=== PATIENT | male | born 1955 | race Two or more races ===

== ENCOUNTER 2017-04-10 12:36 | Outpatient (CLI) | payer OTHER | END 2017-04-10 12:48 | disposition home or self-care (01) | LOC: SONOGRAMA 12:36 | DX: M54.9 Dorsalgia, unspecified (principal); R10.9 Unspecified abdominal pain ==

== ENCOUNTER → 2017-04-10 | Outpatient (CLI) | payer OTHER ==
[~2017-04-10] MED LIST: CIPRO500 MG PO; FINASTERIDE5 MG; LEVAQUIN500 MG; TAMS0.4C; URIN D.S. TABLE1 TAB PO
== END | disposition home or self-care (01) ==
LOC: LAB 12:05
DX: M54.9 Dorsalgia, unspecified (principal); R10.9 Unspecified abdominal pain

== ENCOUNTER 2017-05-09 09:38 | Outpatient (CLI) | payer OTHER | END 2017-05-09 09:49 | disposition home or self-care (01) | LOC: LAB 09:38 | DX: T78.40XA Allergy, unspecified, initial encounter (principal); R30.0 Dysuria ==

== ENCOUNTER 2018-02-26 06:54 | Emergency (ER) | payer OTHER ==
[~2018-02-26] VITALS: Ht 180.3 cm; Wt 90.7 kg
== END 2018-02-26 13:04 | disposition home or self-care (01) ==
LOC: ER 06:54
DX: N40.1 Benign prostatic hyperplasia with lower urinary tract symptoms (principal); R31.0 Gross hematuria

== ENCOUNTER 2018-04-02 09:10 | Outpatient (CLI) | payer OTHER | END 2018-04-02 12:00 | disposition home or self-care (01) | LOC: NUCLEAR 09:10 | DX: E78.5 Hyperlipidemia, unspecified (principal); M25.50 Pain in unspecified joint | CPT/HCPCS: 78306; A9503 ==

== ENCOUNTER 2018-07-22 18:57 | Emergency (ER) | payer OTHER ==
[~2018-07-22] VITALS: Ht 180.3 cm; Wt 91.6 kg
== END 2018-07-23 00:20 | disposition home or self-care (01) ==
LOC: ER 18:57
DX: R31.0 Gross hematuria (principal)

== ENCOUNTER 2018-12-19 06:22 | Outpatient (CLI) | payer OTHER | END 2018-12-19 06:34 | disposition home or self-care (01) | LOC: LAB 06:22 | DX: E80.7 Disorder of bilirubin metabolism, unspecified (principal) ==

== ENCOUNTER → 2019-07-21 06:50 | Outpatient (CLI) | payer OTHER | END | disposition home or self-care (01) | LOC: LAB 06:50 | PROVIDERS: ATTEND Internal Medicine | DX: E78.00 Pure hypercholesterolemia, unspecified (principal) ==

== ENCOUNTER 2019-07-22 06:42 | Outpatient (CLI) | payer OTHER | END 2019-07-22 06:57 | disposition home or self-care (01) | LOC: LAB 06:42 | PROVIDERS: ATTEND Specialist | DX: Z13.0 Encounter for screening for diseases of the blood and blood-forming organs and certain disorders involving the immune mechanism (principal) ==

== ENCOUNTER 2020-04-22 06:20 | Outpatient (CLI) | payer OTHER | END 2020-04-22 15:22 | disposition home or self-care (01) | LOC: LAB 06:20 | DX: E78.00 Pure hypercholesterolemia, unspecified (principal) ==

== ENCOUNTER 2020-04-22 07:23 | Outpatient (CLI) | payer OTHER | END 2020-04-22 07:41 | disposition home or self-care (01) | LOC: RAD 07:23 | DX: G31.84 Mild cognitive impairment of uncertain or unknown etiology (principal); G40.209 Localization-related (focal) (partial) symptomatic epilepsy and epileptic syndromes with complex partial seizures, not intractable, without status epilepticus ==

== ENCOUNTER → 2020-07-16 07:01 | Outpatient (CLI) | payer OTHER | END | disposition home or self-care (01) | LOC: LAB 07:01 | PROVIDERS: ATTEND Specialist | DX: M54.5 Low back pain (principal); R30.0 Dysuria ==

== ENCOUNTER 2020-07-16 07:39 | Outpatient (CLI) | payer OTHER | END 2020-07-16 08:06 | disposition home or self-care (01) | LOC: SONOGRAMA 07:39 | PROVIDERS: ATTEND Specialist | DX: M54.5 Low back pain (principal); R30.0 Dysuria ==

== ENCOUNTER 2021-01-12 09:32 | Outpatient (CLI) | payer OTHER | END 2021-01-12 09:37 | disposition home or self-care (01) | LOC: RAD 09:32 | PROVIDERS: ATTEND General Practice | DX: M51.37 Other intervertebral disc degeneration, lumbosacral region (principal); M54.41 Lumbago with sciatica, right side ==

== ENCOUNTER 2021-01-26 07:06 | Outpatient (CLI) | payer OTHER | END 2021-01-26 07:13 | disposition home or self-care (01) | LOC: SONOGRAMA 07:06 | PROVIDERS: ATTEND General Practice | DX: Q61.01 Congenital single renal cyst (principal); N28.89 Other specified disorders of kidney and ureter; R10.84 Generalized abdominal pain ==

== ENCOUNTER 2021-01-28 11:08 | Outpatient (CLI) | payer OTHER | END 2021-01-28 12:05 | disposition home or self-care (01) | LOC: RAD 11:08 | PROVIDERS: ATTEND General Practice | DX: I10 Essential (primary) hypertension (principal); N32.0 Bladder-neck obstruction; R97.20 Elevated prostate specific antigen [PSA]; N28.1 Cyst of kidney, acquired; Z12.5 Encounter for screening for malignant neoplasm of prostate; Z12.11 Encounter for screening for malignant neoplasm of colon; E78.2 Mixed hyperlipidemia; Z13.1 Encounter for screening for diabetes mellitus; Z13.220 Encounter for screening for lipoid disorders; Z13.228 Encounter for screening for other metabolic disorders; Z13.29 Encounter for screening for other suspected endocrine disorder ==

== ENCOUNTER 2021-03-25 10:55 | Outpatient (CLI) | payer OTHER | END 2021-03-25 11:10 | disposition home or self-care (01) | LOC: RAD 10:55 | PROVIDERS: ATTEND General Practice | DX: M25.562 Pain in left knee (principal) ==

== ENCOUNTER 2022-12-14 07:41 | Outpatient (CLI) | payer OTHER | END 2022-12-14 07:46 | disposition home or self-care (01) | LOC: RAD 07:41 | DX: R05.3 Chronic cough (principal) ==

== ENCOUNTER 2022-12-20 07:45 | Outpatient (CLI) | payer OTHER | END 2022-12-20 07:47 | disposition home or self-care (01) | LOC: SONOGRAMA 07:45 | DX: K76.0 Fatty (change of) liver, not elsewhere classified (principal) ==

== ENCOUNTER 2023-01-02 09:21 | Outpatient (CLI) | payer OTHER | END 2023-01-02 09:28 | disposition home or self-care (01) | LOC: RAD 09:21 | DX: M54.2 Cervicalgia (principal); M54.6 Pain in thoracic spine; M54.50 Low back pain, unspecified ==

== ENCOUNTER 2023-01-24 10:35 | Outpatient (CLI) | payer OTHER | END 2023-01-24 10:40 | disposition home or self-care (01) | LOC: RAD 10:35 | DX: M54.31 Sciatica, right side (principal); M51.36 Other intervertebral disc degeneration, lumbar region ==

== ENCOUNTER 2023-12-05 11:53 | Emergency (ER) | payer OTHER ==
[~2023-12-05] VITALS: Ht 180.3 cm; Wt 95.3 kg
[2023-12-05] MEDS ORDERED: COZAAR25 MG PO (12:33)
[2023-12-05] MEDS ORDERED: KETOROLAC TROMETHAMINE 60 MG VIAL IM STA (13:15)
[2023-12-05 13:58] LABS: HEMATOCRIT 45.6 % (39.0-48.0); HEMOGLOBIN 15.5 g/dL (13-16.00); MEAN CELL VOLUME 85.7 fL (80.0-100.00); MEAN CORPUSCULAR HEMOGLOBIN 29.1 pg (27.00-32.0); PLATELET COUNT 150 K/uL (150-450); RED BLOOD COUNT 5.32 M/uL (4.00-6.00); RED CELL DISTRIBUTION WIDTH 14.6 % (11.5-14.5)
[2023-12-05 14:47] LABS: CALCIUM 8.9 mg/dL (8.5-10.1); CREATININE SERUM 1.11 mg/dL (0.70-1.30); GFR 65.49; POTASSIUM 4.75 mEq/L (3.5-5.1)
[2023-12-05 15:06] LABS: PH,URINE 6.5 (5.0-8.0); URINE APPEARANCE Clear; URINE BILIRRUBIN Negative (NEGATIVE); URINE BLOOD Small; URINE COLOR Yellow; URINE GLUCOSE Negative (NEGATIVE); URINE KETONE Trace (NEGATIVE); URINE LEUKOCYTE Negative; URINE NITRATE Negative
[2023-12-05 15:10] LABS: URINE BACTERIA 11.3 uL (0.0-1933); URINE EPITHELIAL CELLS 2.3 uL (0.0-38.8); URINE RBC 76.1 uL (0.0-20.8)
[2023-12-05 15:24] LABS: URINE PROTEIN 100 (NEGATIVE)
== END 2023-12-05 15:57 | disposition home or self-care (01) ==
LOC: ER 11:55
PROVIDERS: General Practice
DX: R10.9 Unspecified abdominal pain (principal); I10 Essential (primary) hypertension; N28.1 Cyst of kidney, acquired; K40.90 Unilateral inguinal hernia, without obstruction or gangrene, not specified as recurrent
CPT/HCPCS: 36415; 74176; 96372; 99284; J1885

== ENCOUNTER 2024-01-31 06:00 | Emergency (ER) | payer OTHER ==
[~2024-01-31] VITALS: Ht 180.3 cm; Wt 95.3 kg
[~2024-01-31 06:00] MED LIST changes: +COZAAR25 MG PO
[2024-01-31] MEDS ORDERED: LIPITOR20 MG (06:23)
[2024-01-31] MEDS ORDERED: METHYLPREDNISOLONE SOD SUCC 125 MG VIAL IM STA (07:43)
[2024-01-31] MEDS ORDERED: KETOROLAC TROMETHAMINE 10 MG TABLET PO STA (07:44)
[2024-01-31] MEDS ORDERED: LEVALBUTEROL HCL 0.63 MG/3 ML SOLUTION IH SCH (07:45)
[2024-01-31] MEDS ORDERED: LEVALBUTER0.63 MG/3 IH (09:30)
== END 2024-01-31 11:25 | disposition home or self-care (01) ==
LOC: ER 06:02
DX: R07.1 Chest pain on breathing (principal); A49.3 Mycoplasma infection, unspecified site
CPT/HCPCS: 71046; 94640; 96372; 99284; J3490

== ENCOUNTER 2024-02-07 12:17 | Emergency (ER) | payer OTHER ==
[~2024-02-07] VITALS: Ht 180.3 cm; Wt 95.3 kg
[~2024-02-07 12:17] MED LIST changes: +LEVALBUTER0.63 MG/3 IH; +LIPITOR20 MG
[2024-02-07] MEDS ORDERED: hydrOXYzine PAMOATE 25 MG CAPSULE PO ONE (13:00)
[2024-02-07 13:13] LABS: HEMATOCRIT 43.9 % (39.0-48.0); HEMOGLOBIN 14.4 g/dL (13-16.00); MEAN CELL VOLUME 87.5 fL (80.0-100.00); MEAN CORPUSCULAR HEMOGLOBIN 28.7 pg (27.00-32.0); MEAN CORPUSCULAR HGB CONC 32.8 g/dl (32.0-36.0); PLATELET COUNT 216 K/uL (150-450); RED BLOOD COUNT 5.02 M/uL (4.00-6.00); RED CELL DISTRIBUTION WIDTH 14.2 % (11.5-14.5)
[2024-02-07 13:55] LABS: ALBUMIN 3.4 gm/dL (3.4-5.0); BILIRUBIN TOTAL 1.04 mg/dL (0.3-1.2); CALCIUM 8.7 mg/dL (8.5-10.1); CREATININE SERUM 1.13 mg/dL (0.70-1.30); GFR 64.15; GLOBULINA 4.4 G/DL (2.4-3.5); POTASSIUM 4.23 mEq/L (3.5-5.1); TOTAL PROTEIN 7.8 gm/dL (6.4-8.2)
[2024-02-07] MEDS ORDERED: VISTARIL25 MG PO (14:56)
== END 2024-02-07 15:15 | disposition home or self-care (01) ==
LOC: ER 12:19
PROVIDERS: General Practice
DX: R07.9 Chest pain, unspecified (principal); I10 Essential (primary) hypertension

== ENCOUNTER 2024-05-20 22:03 | Emergency (ER) | payer OTHER ==
[~2024-05-20] VITALS: Ht 180.3 cm; Wt 89.8 kg
[~2024-05-20 22:03] MED LIST changes: +VISTARIL25 MG PO
[2024-05-21] MEDS ORDERED: hydrOXYzine PAMOATE 50 MG CAPSULE PO STA (00:54)
[2024-05-21] MEDS ORDERED: hydrOXYzine PAMOATE 50 MG CAPSULE PO ONE (01:32)
[2024-05-21] MEDS ORDERED: HYDROXYZINE PAM50 MG PO (02:48)
== END 2024-05-21 03:23 ==
LOC: ER 22:03
DX: F41.1 Generalized anxiety disorder (principal); F41.9 Anxiety disorder, unspecified; I10 Essential (primary) hypertension

== ENCOUNTER 2024-07-09 16:48 | Emergency (ER) | payer OTHER ==
[~2024-07-09] VITALS: Ht 180.3 cm; Wt 94.3 kg
[~2024-07-09 16:48] MED LIST changes: +HYDROXYZINE PAM50 MG PO
[2024-07-09 17:01] VITALS: BP 148/78; O2SAT 99
[2024-07-09 18:19] LABS: BASO % 0.1 % (0.1-1.2); EOS # 0.61 (0.04-0.54); EOS % 4.6 % (0.7-7.0); HEMATOCRIT 44.8 % (40.1-51.0); HEMOGLOBIN 14.8 g/dL (13.7-17.5); LYMPH # 1.65 (1.18-3.74); LYMPH % 12.5 % (19.3-53.1); MONO # 1.02 (0.24-0.82); MONO % 7.7 % (4.7-12.5); NEUT % 74.7 % (34.0-71.1); PLATELET COUNT 198 K/uL (163-369); RED BLOOD COUNT 5.28 M/uL (4.63-6.08); RED CELL DISTRIBUTION WIDTH 14.5 % (11.6-14.4)
[2024-07-09 18:55] LABS: COVID-19 AG NEGATIVE (NEGATIVE)
[2024-07-09 20:01] LABS: INFLUENZA A AG NEGATIVE (NEGATIVE)
[2024-07-09] MEDS ORDERED: CEFTRIAXONE SODIUM 1,000 MG VIAL IM STA (20:03)
[2024-07-09] MEDS ORDERED: CEFTRIAXONE SODIUM 1,000 MG VIAL ONE (20:12)
== END 2024-07-09 20:21 | disposition home or self-care (01) ==
LOC: ER 16:51
PROVIDERS: General Practice
DX: J06.9 Acute upper respiratory infection, unspecified (principal); Z20.822 Contact with and (suspected) exposure to COVID-19

== ENCOUNTER 2024-10-01 20:35 | Inpatient (IN) | payer OTHER ==
[~2024-10-01] VITALS: Ht 180.3 cm; Wt 94.3 kg
[2024-10-01] MEDS ORDERED: FAMOTIDINE/PF 20 MG in 0.9 % SODIUM CHLORIDE 8 ML IV PUSH STA (20:54)
[2024-10-01] MEDS ORDERED: TICAGRELOR 90 MG TABLET PO ONE (21:00)
[2024-10-01] MEDS ORDERED: NITROGLYCERIN IN 5 % DEXTROSE 50 MG/250 ML KIT IV SCH (21:00)
[2024-10-01] MEDS ORDERED: ATORVASTATIN CALCIUM 40 MG TABLET PO ONE (21:00)
[2024-10-01 21:03] LABS: BASO % 0.2 % (0.1-1.2); EOS # 0.46 (0.04-0.54); EOS % 4.1 % (0.7-7.0); LYMPH # 2.04 (1.18-3.74); LYMPH % 18.2 % (19.3-53.1); MEAN PLATELET VOLUME 11.40 fl (9.4-12.4); MONO # 0.78 (0.24-0.82); MONO % 7.0 % (4.7-12.5); NEUT # 7.88 (1.56-6.13); NEUT % 70.1 % (34.0-71.1); RED CELL DISTRIBUTION WIDTH 13.8 % (11.6-14.4)
[2024-10-01 21:32] LABS: INR 1.0
[2024-10-01 21:40] LABS: ALT/SGPT 41.0 U/L (12-78); AST/SGOT 26.0 U/L (15-37); BILIRUBIN TOTAL 0.65 mg/dL (0.3-1.2); BUN CREA RATIO 13.0 (7.0-25.0); CREATININE SERUM 1.36 mg/dL (0.70-1.30); GFR 51.66; GLOBULINA 3.9 G/DL (2.4-3.5); GLUCOSE FASTING 107.0 mg/dL (65-100); LDH 157.0 U/L (87-241); OSMOLALITY SERUM 276.0 MOSM/KG (275-295); PHOSPHOKINASE CREATININE 309.0 U/L (39-308)
[2024-10-02] VITALS (10 sets, daily range): BP systolic 105–142; BP diastolic 58–91; O2SAT 96–100
[2024-10-02] MEDS ORDERED: TICAGRELOR 90 MG TABLET PO STA (02:02)
[2024-10-02] MEDS ORDERED: NITROGLYCERIN IN 5 % DEXTROSE 250 ML IV SCH (10:15)
[2024-10-02] MEDS ORDERED: DEXTROSE 5 % IN WATER 1,000 ML IV SCH (10:45)
[2024-10-02] MEDS ORDERED: METOPROLOL SUCCINATE 25 MG TAB.SR.24H PO SCH (10:54)
[2024-10-02] MEDS ORDERED: ATORVASTATIN CALCIUM 40 MG TABLET PO SCH (10:55)
[2024-10-02] MEDS ORDERED: TICAGRELOR 90 MG TABLET PO SCH (17:00)
[2024-10-03] VITALS (20 sets, daily range): BP systolic 95–149; BP diastolic 39–89; O2SAT 94–100
[2024-10-03 07:10] LABS: CHOL HDL RATIO 2.8 (0-5.0); HDL 48.0 mg/dl (40-60); LDL 70.0 mg/dl (0-130); VLDL 17.0 (0-39)
[2024-10-03 07:18] LABS: ALT/SGPT 35.0 U/L (12-78); AST/SGOT 24.0 U/L (15-37); BILIRUBIN TOTAL 1.21 mg/dL (0.3-1.2); BUN CREA RATIO 12.0 (7.0-25.0); CREATININE SERUM 1.19 mg/dL (0.70-1.30); GFR 60.26; GLOBULINA 3.6 G/DL (2.4-3.5); GLUCOSE FASTING 96.0 mg/dL (65-100); OSMOLALITY SERUM 282.0 MOSM/KG (275-295); TSH 2.42 uIU/mL (0.358-3.74)
[2024-10-04] VITALS (9 sets, daily range): BP systolic 108–138; BP diastolic 64–84; O2SAT 97–100
[2024-10-04] MEDS ORDERED: ASPIRIN 81 MG TABLET.EC PO SCH (09:00)
[2024-10-04] MEDS ORDERED: ATORVASTATIN CALCIUM 40 MG TABLET PO SCH (09:00)
[2024-10-05] MEDS ORDERED: DIPHENHYDRAMINE HCL 50 MG/ML VIAL 1ML IV ONE (03:45)
[2024-10-05 04:00] VITALS: BP 146/72; O2SAT 97
[2024-10-05 07:17] VITALS: BP 133/60; O2SAT 97
[2024-10-05 12:17] VITALS: BP 133/77; O2SAT 100
[2024-10-05 15:31] VITALS: BP 102/46; O2SAT 97
[2024-10-05] MEDS ORDERED: CLONAZEPAM 0.5 MG TABLET PO SCH (21:00)
[2024-10-05 21:18] VITALS: BP 136/89; O2SAT 100
[2024-10-05 23:29] VITALS: BP 134/73; O2SAT 99
[2024-10-06 04:00] VITALS: BP 119/75; O2SAT 96
[2024-10-06 07:07] VITALS: BP 115/87; O2SAT 99
[2024-10-06 11:56] VITALS: BP 135/74; O2SAT 100
== END 2024-10-06 13:15 | disposition designated cancer center or children's hospital (05) | DRG 282 ==
LOC: ER 20:35 → ICU 10-02 11:09 → ICU-2 10-02 11:09 → ICU 10-02 13:53
PROVIDERS: General Practice; ADMIT Internal Medicine; ATTEND Internal Medicine
PROC: B24BZZZ Ultrasonography of Heart with Aorta (ICD-10-PCS; principal; 2024-10-03)
DX: I21.4 Non-ST elevation (NSTEMI) myocardial infarction (principal); I10 Essential (primary) hypertension; H40.9 Unspecified glaucoma